=== PATIENT | female | born 1955 | race American Indian/Alaskan Native ===

== ENCOUNTER 2020-05-14 07:24 | Day surgery (SDC) | payer MEDICARE ==
[~2020-05-14 07:24] MED LIST: LACTATED RINGERS 1,000 ML IV SCH; MIDAZOLAM 2 MG/2 ML INJ IV NR
[2020-05-14] MEDS ORDERED: BACTERIOSTATIC SODIUM CHLORIDE 0.9% 30 ML VIAL INFILTRATI ONE (07:50)
--- NOTE | 2020-05-14 08:08 | Anesthesia Consultation ---
Anesthesia Consult and Med Hx Date of service: 05/14/20 - Airway Anesthetic Teeth Evaluation: Dentures (upper), Partials (lower) ROM Head & Neck: Adequate Mental/Hyoid Distance: Adequate Mallampati Class: Class III Intubation Access Assessment: Possibly Difficult - Pulmonary Exam CTA: Yes - Cardiac Exam Cardiac Exam: RRR - Pre-Operative Health Status ASA Pre-Surgery Classification: ASA2 Proposed Anesthetic Plan: General - Pulmonary Hx Smoking: Yes (quit 15yrs ago) Hx Respiratory Symptoms: No - Cardiovascular System Hx Hypertension: No Hx Heart Attack/AMI: No Hx Percutaneous Transluminal Coronary Angioplasty (PTCA): No Hx Cardia Arrhythmia: No - Central Nervous System CVA: No - Gastrointestinal Hx Gastroesophageal Reflux Disease: Yes (well controlled) - Endocrine Hx Renal Disease: No Hx Liver Disease: No Hx Insulin Dependent Diabetes: No Hx Non-Insulin Dependent Diabetes: No Hx Thyroid Disease: No - Other Systems Hx Cancer: Yes (hx breast ca s/p chemo/radiation 1997) - Additional Comments Anesthesia Medical History Comments: No hx anesthetic complications.
[2020-05-14] MEDS ORDERED: fentaNYL 100 MCG/2 ML INJ IV PRN (08:09)
--- NOTE | 2020-05-14 08:09 | Anesthesia Day of Surgery ---
Anesthesia Day of Surgery - Day of Surgery Patient Examined: Yes Patient H&P Reviewed: Yes Patient is NPO: Yes
[2020-05-14] MEDS ORDERED: ceFAZolin/Water 2 GM/20 ML 2 GM/20 ML SYRINGE IV NR (08:25)
[2020-05-14] MEDS ORDERED: ceFAZolin/Water 2 GM/20 ML 2 GM/20 ML SYRINGE IV ONE (08:44)
[2020-05-14] MEDS ORDERED: propofoL 200 MG/20 ML VIAL IV ONE (08:44)
[2020-05-14] MEDS ORDERED: HYDROmorphone 1 MG/1 ML INJ ONE (08:44)
[2020-05-14] MEDS ORDERED: LIDOCAINE MPF (2%) 20 MG/1 ML VIAL 5 ML ONE (08:48)
[2020-05-14] MEDS ORDERED: WATER FOR IRRIG STERILE 2000 ML IR ONE (09:48)
[2020-05-14] MEDS ORDERED: ONDANSETRON 4 MG/2 ML INJ ONE (10:09)
--- NOTE | 2020-05-14 10:33 | Post Operative Note ---
Date of procedure: 05/14/20 Pre-op diagnosis: r ureteral stone Post-op diagnosis: same Findings: passed Procedure: ureteroscopy rpgs Anesthesia: JEFFREY Surgeon: HEIDI DE LA TORRE Estimated blood loss: none Pathology: none Condition: stable Disposition: PACU
--- NOTE | 2020-05-14 10:34 | Discharge Summary ---
Short Stay Discharge Plan Activity: other (no straining ) Weight Bearing Status: Full Weight Bearing Diet: regular, other Special Instructions: other (inc fluids ) Durable Medical Equipment Needed Upon Discharge: other (has j stent ) Follow up with: ROSARIO CHESTER MD [Primary Care Provider] - 7 Days HEIDI DE LA TORRE MD [Staff Physician] - 7 Days
--- NOTE | 2020-05-14 11:00 | Post Anesthesia Evaluation ---
- Post Anesthesia Evaluation Patient Participated: Yes Airway Patent: Yes Stable Respiratory Function: Yes Nausea/Vomiting: No Temp > 96.8F: Yes Pain Manageable: Yes Adequeate Hydration: Yes Anesthesia Complications: No
[2020-05-14 11:18] VITALS: BP 132/84
--- NOTE | 2020-05-14 11:18 | Operative Report ---
PREOPERATIVE DIAGNOSES: Severe intermittent right flank pain, right ureteral stone. POSTOPERATIVE DIAGNOSES: Severe intermittent right flank pain, right ureteral stone. PROCEDURES: Cystoscopy, bilateral retrogrades, right lower ureteroscopy flexible. SURGEON: Dr. Velazquez. ANESTHESIA: General. FINDINGS: This is a woman who presented with severe pain. CT after her visit showed a distal stone. She now presents for treatment. DESCRIPTION OF PROCEDURE: The patient was brought to the operating room and placed on the operating room table. Following induction of anesthesia, placed in lithotomy position, prepped and draped in usual sterile fashion. Cystourethroscopy showed a cystocele. Retrograde showed excellent drainage. There were some calcifications in the pelvis, but it looks as if the ureter drained well. The orifice was swollen and edematous and slightly dilated. A wire coiled up in the right renal pelvis and ureteroscopy showed some edema, but no stone. A J stent coiled in the kidney and we left the string. The patient tolerated the procedure well and brought to recovery in stable condition. JOB# [id number] TIBURCIO/JORGE
--- NOTE | 2020-05-14 13:57 | Fluoroscopy Report ---
8 fluoroscopic images submitted Indication: Intraoperative localization Impression: 8 images of the abdomen were submitted for documentation purposes with radiology involve ment. Bilateral retrograde pyelograms were performed with right-sided stent placement in appropriate position. Please refer to the operative note for complete details. A total of 10 mL of Omnipaque 300 was utilized. Fluoroscopic time: 1 minute and 28 seconds Signer Name: Eduardo Burch MD Signed: 05/14/2020 1:53 PM Workstation Name: [id number]
== END 2020-05-14 11:30 | disposition home or self-care (01) ==
LOC: OR 07:24
PROVIDERS: ATTEND Urology
DX: N20.1 Calculus of ureter (principal); G43.909 Migraine, unspecified, not intractable, without status migrainosus; F41.9 Anxiety disorder, unspecified; Z79.899 Other long term (current) drug therapy; Z87.891 Personal history of nicotine dependence; Z85.3 Personal history of malignant neoplasm of breast; Z98.51 Tubal ligation status; Z72.89 Other problems related to lifestyle; Z98.890 Other specified postprocedural states; Z86.2 Personal history of diseases of the blood and blood-forming organs and certain disorders involving the immune mechanism; Z88.8 Allergy status to other drugs, medicaments and biological substances
CPT/HCPCS: 52332; 52351; 74420; A4217; C1758; C1769; C2617; J0690; J1170; J2250; J2405; J2704; J7120; Q9967